=== PATIENT | male | born 1960 | race Caucasian/White ===

== ENCOUNTER 2024-06-05 09:10 | Outpatient (CLI) | payer MEDICARE, OTHER, SELFPAY ==
--- NOTE | ~2024-06-05 | US_ITS ---
EXAM: ABDOMINAL AORTIC ULTRASOUND HISTORY: Family hx cardiovascular dz COMPARISON: None FINDINGS: PROXIMAL ABDOMINAL AORTA (cm): 23 x 32 MID ABDOMINAL AORTA (cm): 14 x 18 DISTAL ABDOMINAL AORTA (cm): 18 x 21 DIAMETER OF THE RIGHT PROXIMAL COMMON ILIAC ARTERY (cm): 1.2 DIAMETER OF THE LEFT PROXIMAL COMMON ILIAC ARTERY (cm): 1.2 IMPRESSION: No aneurysmal dilatation of the abdominal aorta or the origin of the bilateral common iliac arteries, as detailed above. Reviewed, dictated and finalized at location A. EN PRINTING SUPERVISOR
--- NOTE | ~2024-06-05 | CT_ITS ---
EXAMINATION: CTA brain carotid DATE: 06/05/2024 10:49 INDICATION: Right neck and head pain. TECHNIQUE: Computed tomographic angiography (CTA) of the head was performed without and with 100 mL O mnipaque-350 intravenous contrast. CTA of the neck was performed with intravenous contrast. Automated exposure control and iterative reconstruction technique were employed. The dose-length product was 1 744.16 mGy-cm. Maximum intensity projection and volume rendered 3D-reconstructions were created by nikky linton technologist on a separate workstation. COMPARISON: None. FINDINGS: HEAD CTA: There is no intracranial hemorrhage, acute infarction, or abnormal intracranial mass lesion . The ventricles are normal in size. There is mild mucosal thickening in the paranasal sinuses. The o rbits are normal. The mastoid air cells are normal. The vertebral arteries are codominant. There is n o significant stenosis of basilar artery or the posterior cerebral arteries. There is no significant stenosis of the intracranial internal carotid arteries or anterior or middle cerebral arteries. Anter ior communicating artery is normal. Right posterior communicating artery is normal. A left posterior communicating artery is not identified. There is no aneurysm. NECK CTA: There are no pathologically enlarged lymph nodes. There is no significant stenosis of the v ertebral arteries. There is mild plaque in the proximal internal carotid arteries. There is 0% stenos is of the proximal right internal carotid artery relative to normal distal artery lumen diameter (ILYA CET criteria). There is 0% stenosis of the proximal left internal carotid artery relative to normal d istal artery lumen diameter. There is severe cervical spondylosis. There is sclerosis in C3 vertebral body. IMPRESSION: 1. Normal brain. No aneurysm or significant intracranial arterial stenosis. 2. 0% stenosis of the proximal internal carotid arteries relative to normal distal artery lumen diame ters (NASCET criteria). 3. Sclerosis in C3 vertebral body, which is indeterminate for metastatic disease. Consider bone scan. Reviewed, dictated and finalized at location A. R BOAT CAPTAIN IMPRESSION: 1. Normal brain. No aneurysm or significant intracranial arterial stenosis. 2. 0% stenosis of the proximal internal carotid arteries relative to normal dis shade artery lumen diameters (NASCET criteria). 3. Sclerosis in C3 vertebral body, which is indeterminate for metastatic diseas e. Consider bone scan.
--- NOTE | ~2024-06-05 | CT_ITS ---
CT Scan of the Chest without Contrast: Clinical Indication: Lung cancer screening, nicotine dependence Technique: Contiguous sections were acquired throughout the chest without intravenous contrast. Dose reduction technique was used on this scan by utilizing automated exposure control and iterative recon struction technique. The dose-length product (DLP) was 255.67 mGy-cm. Findings: There is no evidence of any significant mediastinal, hilar or axillary lymphadenopathy. The mediastin al soft tissues appear normal. There is no evidence of pleural or pericardial effusion. Calcified right upper lobe granuloma noted. No other pulmonary nodule seen. Images through the upper abdomen reveal no abnormalities. Impression: Lung RADS 2: Benign appearance. 12 month follow-up screening CT advised. Reviewed, dictated and finalized at location . LE BOOTH ATTENDANT Impression: Lung RADS 2: Benign appearance. 12 month follow-up screening CT advised.
[2024-06-05 10:17] LABS: Estimated Glomerular Filt Rate > 60
== END 2024-06-05 09:11 | disposition home or self-care (01) ==
LOC: MICIMG 09:11
PROVIDERS: PCP Internal Medicine; Visit Provider Internal Medicine
DX: Z12.2 Encounter for screening for malignant neoplasm of respiratory organs (principal); F17.210 Nicotine dependence, cigarettes, uncomplicated; G95.89 Other specified diseases of spinal cord; Z82.3 Family history of stroke; Z82.49 Family history of ischemic heart disease and other diseases of the circulatory system; Z13.6 Encounter for screening for cardiovascular disorders
CPT/HCPCS: 70496; 70498; 71271; 76706; Q9967

== ENCOUNTER 2024-06-19 08:23 | Outpatient (CLI) | payer MEDICARE, SELFPAY ==
--- NOTE | ~2024-06-19 | NM_ITS ---
EXAMINATION: NM bone scan whole body DATE: 06/19/2024 13:12 INDICATION: Disorder of bone with sclerotic lesion at C3 on prior CT. TECHNIQUE: 25 mCi Tc-99m HDP was administered intravenously. Delayed whole-body scintigrams were obt ained. COMPARISON: CT studies dated 06/05/2024 FINDINGS: Likely degenerative joint centered uptake at the bilateral acromioclavicular and sternoclavicular chalino nts, at the right carpus, bilateral knees and bilateral mid and forefeet. Additional mild likely dege nerative joint centered uptake at the left-sided lower lumbar facet joints at L4-L5 and L5-S1. Diffus e mild uptake in the cervical spine most prominent in the lower cervical spine where there is severe degenerative disc disease and uncovertebral osteoarthritis on prior CT. No focal increased uptake in the upper cervical spine or other suspicious bone lesions throughout the remainder of the axial and a ppendicular skeleton to suggest metastatic disease. Small focus of increased uptake at the left antec ubital fossa likely representing the site of injection. IMPRESSION: 1. No focally increased uptake at C3 or other suspicious foci of abnormal bone uptake to suggest meta static disease. Reviewed, dictated and finalized at location B. RER PIE BAKERY IMPRESSION: 1. No focally increased uptake at C3 or other suspicious foci of abnormal bone uptake to suggest metastatic disease.
== END 2024-06-19 08:24 | disposition home or self-care (01) ==
PROVIDERS: PCP Internal Medicine; Visit Provider Internal Medicine
DX: M89.9 Disorder of bone, unspecified (principal)
CPT/HCPCS: 78306; A9503

== ENCOUNTER 2024-06-19 10:16 | Outpatient (CLI) | payer MEDICARE, OTHER, SELFPAY ==
--- NOTE | ~2024-06-19 | US_ITS ---
Renal-Bladder ultrasound Clinical History: Abnormal renal function Technique: Real-time sonographic imaging of the kidneys and urinary bladder was performed. Findings: The right kidney measures 10.6 cm in length and the left kidney measures 10.5 cm. There is no hydronephrosis or renal calculus identified. Renal cortical echogenicity is within normal limits. No renal mass lesion is identified. The urinary bladder is moderately distended at the time of this exam. No intraluminal echoes are iden tified. No abnormal wall thickening is seen. Impression: Unremarkable ultrasound of the kidneys and urinary bladder. Reviewed, dictated and finalized at location M. POSTING CLERK Impression: Unremarkable ultrasound of the kidneys and urinary bladder.
== END 2024-06-19 10:17 | disposition home or self-care (01) ==
LOC: MICIMG 10:18
PROVIDERS: PCP Internal Medicine; Visit Provider Internal Medicine
DX: R94.4 Abnormal results of kidney function studies (principal)
CPT/HCPCS: 76775

== ENCOUNTER 2024-12-09 12:03 | Outpatient (CLI) | payer MEDICARE, SELFPAY ==
--- OUTSIDE RECORDS SUMMARY | 2024-12-09 12:08 | XMS_ITS | CONTINUITY OF CARE DOCUMENT ---
Author Name brayan schmidt Address Unknown Organization [facility] Address [address] [place] [address] Phone [phone] Care Team Providers Care Barber Instructor Name Role Phone Sin Perez MD Unavailable RADHA ALFARO MD Unavailable [phone] RADHA ALFARO MD Unavailable PROBLEMS Condition Status Date Provider Notes Family History of Hypertension: active ? Hai Perez MD Family History of Hypertension: active ? Hai Perez MD Family History of Hypertension: active ? Hai Perez MD Other symptoms involving car diovascular system active Sin Perez MD HTN essential active Sin Perez MD Chest pain-type to be determined active Martin Perez MD Tobacco abuse active Sin Perez MD Hyperlipidemia active ? Sin Perez MD Hypertension active ? Sin Perez MD Abnormal electrocardiogram active Sin ortiz MD ENCOUNTERS Date Type Provider Location Encounter Diag nosis - In-person encounter Office Visit Sin Perez MD [facility] Family History of Hypertension:Family History of Hypertension:Family History of Hypertension:Other symptoms involving cardiovascular systemHTN essentialChest pain-type to be determinedTobacco abuseHyperlipidemiaHypertensionAbnormal electrocardiogram VITAL SIGNS Date Observation Value Provider Body Mass Index (Ratio) 32.69 kg/m2 Barbra Lemus blood pressure, diastolic 91 mm[Hg] Cristhian Lemus blood pressure, systolic 134 mm[Hg] Pascual Lemus pulse rate 107 /min Chelita Lemus oxygen saturation, oximetry 98 % Chelitawesley Lemus respiratory rate E&M 20 /min Chelita Lemus weight E&M 215 [lb_av] Chelita Lemus height E&M 68 [in_i] Chelita Lemus ALLERGIES No Known Drug Allergies HISTORY OF MEDICATION USE Medication Status Instructions Dates Provider Indications Com ments FIBER active as directed Chelita Lemus ASPIRIN 81 MG ORAL TABLET active 1 tab daily Chelita Lemus HYDROCODONE-ACETAMINOPHE N 10-325 MG ORAL TABLET active as needed Chelita Lemus AMBIEN 10 MG ORAL TABLET active as directed Chelita pipre LORAZEPAM 1 MG ORAL TABLET active as directed Chelita Lemus LISINOPRIL 20 MG ORAL TABLET active 1 tab daily Chelita Lemus HYDROXYZINE HCL 10 MG ORAL TABLET active 1 tab daily Chelita Lemus CYCLOBENZAPRINE HCL 10 MG ORAL TABLET active 1 tab daily Chelita Lemus SOCIAL HISTORY Date Observation Value Provider smoking/tobacco cess ation, patient education and counseling yes Sin Perez MD social history E&M Marital Statu s: C sukhdeepdren: 0 O ccupation: retired Sin Perez MD social history reviewed E&M revi ewed - no changes required Sin Perez MD smoking, date started 1999 Chelita Lemus smoking history, tot al pack/day 2pks Chelita Mariah cigarette use yes Chelita Lemus smoking status Current every day smoker Isidro melissa Mariah FAMILY HISTORY Family Member Condition Full Sister Family History of Hy pertension: Full Sister Family History of Di abetes: Full Brother Family History of Hy pertension: Full Brother Family History of Di abetes: Father Family History of Hy pertension: Father Family History of Di abetes: INSURANCE PROVIDERS Payer name Policy type / Coverage type Platter red libertarian [employer] PPO Other [id number] TREATMENT PLAN Date Name Performer New Pt: H is updated medication list for this problem includes: Aspirin 81 Mg Tabs (Aspirin) ..... 1 tab daily Lisinopril 20 Mg Tabs (Lisinopril) ..... 1 tab daily Orders: C arotid Duplex Bilateral ([id number]) Sin Perez MD New Pt Sin Perez MD New Pt: H is updated medication list for this problem includes: Aspirin 81 Mg Tabs (Aspirin) ..... 1 tab daily Lisinopril 20 Mg Tabs (Lisinopril) ..... 1 tab daily Orders: C omplete Echo ([id number]) Sin Perez MD Date Name Carotid Duplex Bilat eral Complete Echo STR - Nuclear
[2024-12-17 17:08] LABS: Block/Specimen ID NG; Clinical Indication NG; JAK2 V617F Mutation NOT DETECTED (NOT DETECTED); Specimen Source BLOOD
== END 2024-12-09 12:04 | disposition home or self-care (01) ==
PROVIDERS: PCP Internal Medicine; Visit Provider Internal Medicine
DX: D75.1 Secondary polycythemia (principal)
CPT/HCPCS: 36415; 81270